=== PATIENT | female | born 1975 | race Two or more races ===

== ENCOUNTER 2016-05-26 20:06 | Emergency (ER) | payer SELFPAY ==
--- NOTE | 2016-05-27 19:34 | ER ---
ADMIT: 05/26/2016 RM/LOC: ER [facility] MR#: [id number] [facility] [id number] AMOR ROSEY Giovanni [address] [place] [address] Emergency Room Report SEX: F AGE: 41 : 1975 DATE: 05/26/2016 The patient is a 41-year-old female, asthmatic, just got her Medicaid approved, complains of difficulty breathing for the past 2 weeks, much worse the past 4 days. Denies any fevers, chills, nausea, vomiting, or pain. Exam remarkable for nontoxic, afebrile female with normal O2 sats. Responded well to continuous albuterol with ipratropium, magnesium 2 g IV piggyback, Solu- Medrol 125 mg IV push, and Tussionex 10 mL p.o. for cough suppression. Discharged with doxycycline 200 mg load in department, 100 mg b.i.d. x7 days, prednisone 60 mg daily x5 days, albuterol MDI as needed, and follow up Dr. Jose Marin as needed. Mike Tavera MD/ nikita JOB #: [id number] CC: Salo Hernandez MD, Attending Physician Jose Marin MD, Family Physician Jose Marin MD
== END 2016-05-26 23:30 | disposition home or self-care (01) ==
LOC: ER 20:06
DX: J45.909 Unspecified asthma, uncomplicated (principal)